=== PATIENT | female | born 1970 | race Caucasian/White ===

== ENCOUNTER 2023-12-06 19:51 | Emergency (ER) | payer OTHER ==
[~2023-12-06] VITALS: Ht 165.1 cm; Wt 110.7 kg
[2023-12-06 20:05] VITALS: PULSE 90; RESP 18; TEMP 98
[2023-12-06 21:40] VITALS: BP 141/63; PULSE 90; RESP 18; TEMP 98; O2SAT 99
== END 2023-12-06 21:40 | disposition home or self-care (01) ==
LOC: FSED 19:55
DX: M79.672 Pain in left foot (principal); M77.52 Other enthesopathy of left foot and ankle; E11.9 Type 2 diabetes mellitus without complications; E03.9 Hypothyroidism, unspecified; E66.01 Morbid (severe) obesity due to excess calories; Z85.41 Personal history of malignant neoplasm of cervix uteri; Z85.6 Personal history of leukemia
CPT/HCPCS: 99283

== ENCOUNTER 2024-02-09 11:58 | Emergency (ER) | payer OTHER ==
[~2024-02-09] VITALS: Ht 165.1 cm; Wt 114.4 kg
[2024-02-09] MEDS ORDERED: ACETAMINOPHEN-1 EAC4 (12:36)
[2024-02-09] MEDS ORDERED: ULTRAM 50MG50 MG PO (12:36)
[2024-02-09] MEDS ORDERED: TYLENOL #3 (12:36)
[2024-02-09] MEDS ORDERED: DIAZEPAM5 MG PO (12:36)
[2024-02-09] MEDS ORDERED: MOUNJARO2.5 MG/0.5 (12:36)
[2024-02-09] MEDS ORDERED: CYCLOBENZAPRINE5 MG PO (12:36)
[2024-02-09] MEDS ORDERED: CEPHALEXIN500 MG PO (12:36)
[2024-02-09] MEDS ORDERED: CLEOCIN HCL150 MG PO (13:16)
[2024-02-09 13:30] VITALS: PULSE 88; RESP 16; TEMP 97.7; O2SAT 97
== END 2024-02-09 13:30 | disposition home or self-care (01) ==
LOC: FSED 12:13
DX: L03.031 Cellulitis of right toe (principal); B35.3 Tinea pedis; E11.9 Type 2 diabetes mellitus without complications; E03.9 Hypothyroidism, unspecified; E66.01 Morbid (severe) obesity due to excess calories; Z85.41 Personal history of malignant neoplasm of cervix uteri; Z85.6 Personal history of leukemia
CPT/HCPCS: 99283

== ENCOUNTER 2024-02-12 11:58 | Emergency (ER) | payer OTHER ==
[~2024-02-12] VITALS: Ht 165.1 cm; Wt 114.3 kg
[~2024-02-12 11:58] MED LIST: ACETAMINOPHEN-1 EAC4; CEPHALEXIN500 MG PO; CLEOCIN HCL150 MG PO; CYCLOBENZAPRINE5 MG PO; DIAZEPAM5 MG PO; MOUNJARO2.5 MG/0.5; TYLENOL #3; ULTRAM 50MG50 MG PO
[2024-02-12 12:17] VITALS: PULSE 110; RESP 18; TEMP 98.2; O2SAT 98
[2024-02-12] MEDS ORDERED: VALTREX1000 MG PO (12:37)
[2024-02-12] MEDS ORDERED: CLINDAMYCIN HC300 MG PO (12:37)
[2024-02-12] MEDS ORDERED: DIFLUCAN200 MG PO (12:37)
== END 2024-02-12 12:45 | disposition home or self-care (01) ==
LOC: FSED 12:05
DX: L03.115 Cellulitis of right lower limb (principal); B02.9 Zoster without complications; B37.9 Candidiasis, unspecified; E11.9 Type 2 diabetes mellitus without complications; E03.9 Hypothyroidism, unspecified; Z85.41 Personal history of malignant neoplasm of cervix uteri; Z85.6 Personal history of leukemia
CPT/HCPCS: 99283

== ENCOUNTER 2024-06-29 13:39 | Emergency (ER) | payer OTHER ==
[~2024-06-29] VITALS: Ht 165.1 cm; Wt 110.7 kg
[~2024-06-29 13:39] MED LIST changes: +CLINDAMYCIN HC300 MG PO; +DIFLUCAN200 MG PO; +VALTREX1000 MG PO
[2024-06-29 14:47] LABS: BILIRUBIN,URINE SMALL (NEGATIVE); CLARITY,URINE SL CLOUDY (CLEAR); COLOR,URINE YELLOW (YELLOW); GLUCOSE, URINE NEGATIVE (NEGATIVE); KETONES,URINE TRACE (NEGATIVE); LEUKOCYTE ESTERASE ,URINE SMALL (NEGATIVE); NITRITE,URINE NEGATIVE (NEGATIVE); PH,URINE 6 (5 - 7); PROTEIN,URINE DIPSTICK 2+ (NEGATIVE); URINE UROBILINOGEN 1 mg/dL (0.2 - 1)
[2024-06-29 15:00] LABS: BACTERIA,URINE MODERATE /HPF; EPITHELIAL CELLS,URINE MODERATE /LPF; RBC,URINE 21-50 /HPF (0-5); TRANSITIONAL EPI CELLS,URINE MANY
[2024-06-29] MEDS: SODIUM CHLORIDE 0.9% 1000ML 1,000 ML IV STA (15:24)
[2024-06-29 15:47] LABS: BASOPHILS % 0.2 % (0.0-1.0); EOSINOPHILS # (AUTO) 0.1 (0.0-0.4); EOSINOPHILS % 0.5 % (0.0-6.0); HEMATOCRIT 42.5 % (34.2-44.1); HEMOGLOBIN 14.1 g/dL (12.0-16.0); LYMPHOCYTES # (AUTO) 2.7 (1.0-3.2); LYMPHOCYTES % 16.5 % (18.0-39.1); MEAN CORPUSCULAR HEMOGLOBIN 27.1 pg (28-32); MEAN CORPUSCULAR HGB CONC 33.2 g/dL (31-35); MEAN CORPUSCULAR VOLUME 81.7 fL (81-99); NEUTROPHILS # (AUTO) 12.7 (2.1-6.9); NEUTROPHILS % 76.4 % (38.7-80.0); PLATELET COUNT 348 x10e3/uL (140-360); RED CELL DISTRIBUTION WIDTH 13.3 % (11.7-14.4); WHITE BLOOD COUNT 16.58 x10e3/uL (4.8-10.8)
[2024-06-29 16:00] LABS: ALBUMIN 3.2 g/dL (3.5-5.0); ALBUMIN/GLOBULIN RATIO 0.8 (0.8-2.0); ANION GAP 15.6 mmol/L (8-16); BILIRUBIN,TOTAL 0.4 mg/dL (0.2-1.2); CALCIUM 8.9 mg/dL (8.4-10.2); CREATININE, SERUM 0.89 mg/dL (0.57-1.11); POTASSIUM 4.6 mmol/L (3.5-5.1); TOTAL PROTEIN 7.1 g/dL (6.5-8.1)
[2024-06-29] MEDS ORDERED: IOPAMIDOL 370 MG/ML 100 ML INFUS..BTL INJ ONE (16:33)
[2024-06-29] MEDS ORDERED: CEFDINIR300 MG PO (17:06)
[2024-06-29] MEDS ORDERED: NAPROXEN250 MG PO (17:06)
[2024-06-29 17:19] VITALS: PULSE 82; RESP 16; TEMP 98.2; O2SAT 100
== END 2024-06-29 17:19 | disposition home or self-care (01) ==
LOC: ER 13:57
DX: N93.8 Other specified abnormal uterine and vaginal bleeding (principal); E11.65 Type 2 diabetes mellitus with hyperglycemia; E03.9 Hypothyroidism, unspecified; E66.01 Morbid (severe) obesity due to excess calories; Z85.41 Personal history of malignant neoplasm of cervix uteri; Z85.6 Personal history of leukemia
CPT/HCPCS: 36415; 74177; 80053; 81001; 84702; 85025; 99283; J7030; Q9967